=== PATIENT | female | born 1985 | race Caucasian/White ===

== ENCOUNTER 2021-07-10 08:13 | Outpatient (CLI) | payer SELFPAY ==
[2021-07-10 10:19] LABS: #Basophils 0.1 10x3/uL (0.0-0.2); #Eosinphils 0.2 10x3/uL (0.0-0.5); #Monocytes 1.2 10x3/uL (0.0-1.1); #Neutrophils 4.1 10x3/uL (1.5-8.4); %Basophils 1.1 % (0.0-2.0); %Eosinophils 1.8 % (0.0-6.0); %Lymphocytes 33.3 % (18.0-47.0); %Monocytes 14.2 % (0.0-10.0); %Neutrophils 49.4 % (40.0-75.0); Mean Corpuscular HGB CONC 32.2 g/dL (32.0-36.0); Mean Corpuscular Hemoglobin 28.6 pg (27.0-33.0); Mean Corpuscular Volume 88.8 fl (81.6-98.3); Platelet Count 374 10x3/uL (150-450); RBC Distribution Width 12.4 % (11.5-14.5); Red Blood Cell (RBC) Count 5.25 10x6/uL (3.90-5.03); White Blood Cell (WBC) Count 8.3 10x3/uL (3.5-10.5)
[2021-07-10 10:34] LABS: BHCG - Serum Negative (NEGATIVE); Pregs Control Background? CLEAR/WHITE (CLR/WHITE); Pregs Control Bar Appear? YES (CONTROL BAR)
[2021-07-10 10:42] LABS: Anion Gap 14 mmol/L (10-20); BUN (Urea Nitrogen) 14 mg/dL (7.0-18.7); Calc. Creatinine Clearance 0 mL/min (70-130); Carbon Dioxide 25 mmol/L (22-29); Chloride 103 mmol/L (98-107); Glucose 89 mg/dL (70-105); Potassium 4.5 mmol/L (3.5-5.1); Sodium 137 mmol/L (136-145)
[2021-07-10 10:43] LABS: ALT (SGPT) 18 U/L (8-55); AST (SGOT) 19 U/L (5-34); Albumin 4.8 g/dL (3.5-5.0); Alkaline Phosphatase 71 U/L (40-110); Bilirubin, Total 0.3 mg/dL (0.2-1.2); Calcium 9.5 mg/dL (7.8-10.44); Globulin 2.9 g/dL (2.4-3.5); Protein, Total 7.7 g/dL (6.0-8.3)
[2021-07-10 19:56] LABS: SARS-CoV-2 PCR by NAA Not Detected (NotDetected)
== END 2021-07-10 08:14 | disposition home or self-care (01) ==
LOC: LABBT 08:13
PROVIDERS: ATTEND Surgery
DX: Z01.818 Encounter for other preprocedural examination (principal); E66.01 Morbid (severe) obesity due to excess calories; Z20.822 Contact with and (suspected) exposure to COVID-19
CPT/HCPCS: 71046; 80053; 83036; 84703; 85025; 93005; 93010; U0003; U0005

== ENCOUNTER 2021-07-10 09:00 | Inpatient (IN) | payer OTHER ==
[2021-07-08 11:32] VITALS: BMI 42.5
[2021-08-05] MEDS ORDERED: Midazolam HCl 2 mg/2 ml Vial ONE ×2 (06:37→07:07)
[2021-08-05] MEDS ORDERED: Fentanyl 100 MCG/2 ML VIAL ONE ×5 (06:37→11:05)
[2021-08-05] MEDS ORDERED: Bupivacaine 0.25% HCL 30 ML VIAL ONE (06:55)
[2021-08-05] MEDS ORDERED: Xylocaine 1% w/ Epi 1:100K 10 ML VIAL ONE (06:55)
[2021-08-05] MEDS ORDERED: Scopolamine 1.5 mg/72 hour Patch ONE ×2 (07:04→07:08)
[2021-08-05] MEDS ORDERED: Heparin 5,000 UNITS/ML VIAL ONE (07:09)
[2021-08-05] MEDS ORDERED: ceFAZolin 2 GM/Dextrose 50 ML IVPB ONE (07:17)
[2021-08-05] MEDS ORDERED: PHENYLEPHRINE-NS 100 MCG/ML 10 ML SYRINGE ONE (07:44)
[2021-08-05] MEDS ORDERED: Rocuronium Bromide 10 MG/ML (10ML VIAL) ONE (07:44)
[2021-08-05] MEDS ORDERED: Ondansetron PF 4 MG/2 ML Vial ONE (07:44)
[2021-08-05] MEDS ORDERED: Glycopyrrolate 0.2 MG/ML 5 ML SYRINGE ONE ×2 (07:44)
[2021-08-05] MEDS ORDERED: PROPOFOL 200 MG/20 ML VIAL ONE (07:44)
[2021-08-05] MEDS ORDERED: Dexamethasone 20 MG/5 ML VIAL ONE (07:44)
[2021-08-05] MEDS ORDERED: Lidocaine 1% PF 5 ML VIAL ONE (07:44)
[2021-08-05] MEDS ORDERED: diphenhydrAMINE 50 MG/ML VIAL IVP PRN ×2 (08:44→09:12)
[2021-08-05] MEDS ORDERED: Hydrocodone-Acetamin 15 ML UDCUP PO PRN (08:44)
[2021-08-05] MEDS ORDERED: Dextrose 50% Abboject 50 ML SYRINGE SLOW IVP PRN (08:44)
[2021-08-05] MEDS ORDERED: Promethazine HCl 25 MG/ML VIAL IM PRN ×3 (08:44→09:12)
[2021-08-05] MEDS ORDERED: Dextrose 5% in Water 1,000 ML IV PRN (08:44)
[2021-08-05] MEDS ORDERED: hydrALAZINE 20 MG/ML VIAL SLOW IVP PRN (08:44)
[2021-08-05] MEDS ORDERED: Ondansetron PF 4 MG/2 ML Vial IVP PRN ×2 (08:44→09:12)
[2021-08-05] MEDS ORDERED: Ondansetron HCl/PF 4 MG/2 ML Vial IVP PRN (09:03)
[2021-08-05] MEDS ORDERED: Promethazine HCl 25 MG/ML VIAL IVPB PRN (09:03)
[2021-08-05] MEDS ORDERED: Naloxone HCl 0.4 mg/ml Vial IV PRN (09:12)
[2021-08-05] MEDS ORDERED: Zolpidem Tartrate 5 MG TAB PO PRN (09:12)
[2021-08-05] MEDS ORDERED: diphenhydrAMINE 25 MG CAP PO PRN (09:12)
[2021-08-05] MEDS ORDERED: fentaNYL Citrate/PF 2,000 MCG in Sodium Chloride 0.9% 60 ML IV PRN (09:12)
[2021-08-05] MEDS ORDERED: diphenhydrAMINE 50 MG/ML VIAL IM PRN (09:12)
[2021-08-05] MEDS: Enoxaparin Sodium 40 MG/0.4 ML SYRINGE SC SCH (09:13)
[2021-08-05] MEDS ORDERED: Promethazine HCl 25 MG/ML VIAL ONE (09:14)
[2021-08-05] MEDS: D5 1/2 NS w/20 mEq KCL 1,000 ML IV SCH ×2 (09:14→15:46)
[2021-08-05] MEDS ORDERED: PCA Communication Order-Pharmacy FS PRN (09:15)
[2021-08-05] MEDS: Pantoprazole 40 MG VIAL IVP SCH (09:15)
[2021-08-05] MEDS: Ketorolac Tromethamine 30 MG/ML VIAL IVP SCH ×2 (12:00→18:25)
[2021-08-05] MEDS: CEFAZOLIN 2 GM, Admixture Fee 1 EACH in Sodium Chloride 0.9% 100 ML IVPB SCH (15:45)
[2021-08-06] MEDS: Ketorolac Tromethamine 30 MG/ML VIAL IVP SCH ×2 (00:11→05:29)
[2021-08-06] MEDS: CEFAZOLIN 2 GM, Admixture Fee 1 EACH in Sodium Chloride 0.9% 100 ML IVPB SCH (00:13)
[2021-08-06] MEDS: D5 1/2 NS w/20 mEq KCL 1,000 ML IV SCH ×2 (00:45→09:26)
[2021-08-06 05:19] LABS: #Lymphocytes 3.5 thou/uL (1.20-3.40); #Monocytes 1.2 thou/uL (0.11-0.59); #Neutrophils 11.6 thou/uL (1.40-6.50); %Basophils 0.2 % (0.0-1.0); %Eosinophils 0.2 % (0.0-10.0); %Lymphocytes 21.4 % (21.0-51.0); %Monocytes 7.4 % (0.0-10.0); %Neutrophils 70.9 % (42.0-75.0); Hemoglobin 13.4 g/dL (12.0-16.0); Mean Corpuscular HGB CONC 34.4 g/dL (32.0-36.0); Mean Corpuscular Hemoglobin 30.5 pg (27.0-31.0); Mean Corpuscular Volume 88.6 fL (78.0-98.0); Mean Platelet Volume 6.3 fL (7.4-10.4); Platelet Count 367 thou/uL (130-400); RBC Distribution Width 11.8 % (11.5-14.5); Red Blood Cell (RBC) Count 4.39 mill/uL (4.20-5.40); White Blood Cell (WBC) Count 16.3 thou/uL (4.8-10.8)
[2021-08-06] MEDS ORDERED: Hydrocodone-Acetamin 15 ML UDCUP PO PRN (05:38)
[2021-08-06 05:40] LABS: Anion Gap 13 mmol/L (10-20); BUN (Urea Nitrogen) 9 mg/dL (7.0-18.7); Calc. Creatinine Clearance 171 mL/min (70-130); Calcium 8.8 mg/dL (7.8-10.44); Carbon Dioxide 21 mmol/L (22-29); Chloride 107 mmol/L (98-107); Glucose 103 mg/dL (70-105); Potassium 3.9 mmol/L (3.5-5.1); Sodium 137 mmol/L (136-145)
[2021-08-06 08:09] VITALS: BP 128/86; TEMP 98.2
[2021-08-06] MEDS: Enoxaparin Sodium 40 MG/0.4 ML SYRINGE SC SCH (09:10)
[2021-08-06] MEDS: Pantoprazole 40 MG VIAL IVP SCH (09:26)
== END 2021-08-06 10:14 | disposition home or self-care (01) | DRG 621 ==
LOC: SURG A 08-05 05:55 → UNDOADMIN 08-05 06:28 → SURG A 08-05 06:28 → SURG B 08-05 13:57
PROVIDERS: ADMIT Surgery; ATTEND Surgery
PROC: 0DB64Z3 Excision of Stomach, Percutaneous Endoscopic Approach, Vertical (ICD-10-PCS; principal; 2021-08-05)
DX: E66.01 Morbid (severe) obesity due to excess calories (principal); Z68.41 Body mass index [BMI] 40.0-44.9, adult; I10 Essential (primary) hypertension; K21.9 Gastro-esophageal reflux disease without esophagitis; F41.9 Anxiety disorder, unspecified; Z87.891 Personal history of nicotine dependence; Z90.49 Acquired absence of other specified parts of digestive tract
CPT/HCPCS: 36415; 80048; 85025; 88307; C1713; J0690; J1100; J1644; J1650; J1885; J2250; J2405; J2550; J2704; J3010; J3480; J3490; S0020

== ENCOUNTER 2021-07-10 09:42 | Outpatient (CLI) | payer OTHER | END 2021-07-10 09:43 | disposition home or self-care (01) | LOC: DTY/OP 09:42 | PROVIDERS: ATTEND Surgery | DX: E66.01 Morbid (severe) obesity due to excess calories (principal) | CPT/HCPCS: 97802 ==

== ENCOUNTER 2021-08-03 11:08 | Outpatient (CLI) | payer SELFPAY ==
[2021-08-03 20:46] LABS: SARS-CoV-2 PCR by NAA Not Detected (NotDetected)
== END 2021-08-03 11:09 | disposition home or self-care (01) ==
LOC: LABBT 11:08
PROVIDERS: ATTEND Surgery
DX: Z01.812 Encounter for preprocedural laboratory examination (principal); E66.01 Morbid (severe) obesity due to excess calories; Z20.822 Contact with and (suspected) exposure to COVID-19
CPT/HCPCS: U0003; U0005